=== PATIENT | male | born 1935 | race Caucasian/White ===

== ENCOUNTER 2018-07-24 15:31 | Emergency (ER) | payer MEDICARE, OTHER ==
--- NOTE | 2018-07-24 16:26 | ED.PDOC ---
History of Present Illness - General Chief Complaint: Skin/Abrasion/Tear Stated Complaint: toe bleeding Time Seen by Provider: 07/24/18 16:21 Source: patient Additional Information: he is on blood thinners and while trimming his toe nails he accidentally clipped the skin. it has not quit bleeding. - History of Present Illness Timing/Duration: this morning Severity: mild Location: feet Improving Factors: nothing Worsening Factors: nothing Associated Symptoms: denies symptoms Allergies/Adverse Reactions: Allergies NO KNOWN ALLERGY Allergy (Verified 07/24/18 15:53) Home Medications: Ambulatory Orders Aspirin [Aspirin Childrens] 81 mg PO DAILY 10/25/14 Atorvastatin Calcium [Lipitor] 10 mg PO DAILY 10/25/14 Levothyroxine Sodium [Synthroid] 75 mcg PO DAILY 10/25/14 Review of Systems - Review of Systems Constitutional: States: no symptoms reported EENTM: States: no symptoms reported Respiratory: States: no symptoms reported Cardiology: States: no symptoms reported Gastrointestinal/Abdominal: States: no symptoms reported Genitourinary: States: no symptoms reported Musculoskeletal: States: no symptoms reported Skin: States: other - superficial lac to the left 5th toe Neurological: States: no symptoms reported Endocrine: States: no symptoms reported Hematologic/Lymphatic: States: no symptoms reported Past Medical History (General) - Patient Medical History Hx Seizures: No Hx Stroke: No Hx Dementia: No Hx Asthma: No Hx of COPD: No Hx Cardiac Disorders: No Hx Congestive Heart Failure: No Hx Pacemaker: No Hx Hypertension: No Hx Thyroid Disease: Yes Hx Diabetes: No Hx Gastroesophageal Reflux: No Hx Renal Disease: No Hx Cancer: No Hx of HIV: No Hx Hepatitis C: No Hx MRSA: No Surgical History: other Other Surgeries:: liver transplant, peripheral stenting, valve replacement - Vaccination History Hx Influenza Vaccination: Yes Hx Pneumococcal Vaccination: Yes - Social History Hx Tobacco Use: No Hx Alcohol Use: No Hx Substance Use: No Hx Substance Use Treatment: No Hx Depression: No Family Medical History - Family History Mother Family History: No Known Physical Exam - Physical Exam General Appearance: Alert, Well Developed, Well Groomed, Well Hydrated, Well Nourished Eyes, Ears, Nose, Throat Exam: PERRL/EOMI, normal ENT inspection Neck: non-tender, full range of motion, supple, normal inspection Cardiovascular/Chest: normal peripheral pulses, regular rate, rhythm, no edema, no gallop, no JVD Respiratory: chest non-tender, lungs clear, normal breath sounds, no respiratory distress, no accessory muscle use Gastrointestinal/Abdominal: normal bowel sounds, non tender, soft, no organomegaly Back Exam: normal inspection Extremity: other - fifth left toe has a superfical wound, mild bleeding. Neurologic: no motor/sensory deficits, alert, normal mood/affect, oriented x 3 Lymphatic: no adenopathy Progress - Progress Progress: 07/24/18 16:33 NO FURTHER BLEEDING. WILL DC HOME WITH A PRESSURE DRESSING TO THE TOE. Procedures - Laceration/Wound Repair Toe Wound Length (cm): 0.5 Wound's Depth, Shape: superficial Wound Explored: clean Betadine Prep?: No Layer Closure?: No Sterile Dressing Applied?: Yes Splint Applied?: No Progress: the wound was not closed. it was cleansed and then silver nitrate was applied to stop the bleeding. good results. Departure - Departure Clinical Impression: Laceration of toe Qualifiers: Encounter type: initial encounter Toe: lesser toe Damage to nail status: without damage Foreign body presence: without foreign body Laterality: left Qualified Code(s): S91.115A - Laceration without foreign body of left lesser toe (s) without damage to nail, initial encounter Time of Disposition: 16:34 Disposition: Discharge to Home or Self Care Condition: Good Departure Forms: ED Discharge - Pt. Copy, Patient Portal Self Enrollment Referrals: Jose Raul Hill III, MD [Primary Care Provider] - 1-2 Weeks Home Medications: Ambulatory Orders Aspirin [Aspirin Childrens] 81 mg PO DAILY 10/25/14 Atorvastatin Calcium [Lipitor] 10 mg PO DAILY 10/25/14 Levothyroxine Sodium [Synthroid] 75 mcg PO DAILY 10/25/14
[2018-07-24] MEDS ORDERED: NEOMYCIN-BACITRACIN-POLYMYXIN 0.9 GM UD TOP ONE (16:37)
[2018-07-24 16:43] VITALS: BP 129/59; TEMP 98.5; O2SAT 97
== END 2018-07-24 16:43 | disposition home or self-care (01) ==
LOC: ER 15:31
DX: S91.115A Laceration without foreign body of left lesser toe(s) without damage to nail, initial encounter (principal); E07.9 Disorder of thyroid, unspecified; Z79.01 Long term (current) use of anticoagulants; Z94.4 Liver transplant status; Z95.2 Presence of prosthetic heart valve; Z79.82 Long term (current) use of aspirin; Z79.899 Other long term (current) drug therapy; W45.8XXA Other foreign body or object entering through skin, initial encounter; Y93.89 Activity, other specified

== ENCOUNTER → 2018-12-26 | Outpatient (CLI) | payer MEDICARE, OTHER | LOC: SOLHH 10:07 | PROVIDERS: ATTEND Internal Medicine Gastroenterology | DX: Z51.81 Encounter for therapeutic drug level monitoring (principal); R06.02 Shortness of breath; N18.3 Chronic kidney disease, stage 3 (moderate); S91.109A Unspecified open wound of unspecified toe(s) without damage to nail, initial encounter; Z94.4 Liver transplant status; Z79.899 Other long term (current) drug therapy ==

== ENCOUNTER → 2018-12-30 | Outpatient (CLI) | payer MEDICARE, OTHER | LOC: BFHH 08:43 | PROVIDERS: ATTEND Internal Medicine Gastroenterology | DX: I12.9 Hypertensive chronic kidney disease with stage 1 through stage 4 chronic kidney disease, or unspecified chronic kidney disease (principal); N18.3 Chronic kidney disease, stage 3 (moderate); S91.109A Unspecified open wound of unspecified toe(s) without damage to nail, initial encounter; Z51.81 Encounter for therapeutic drug level monitoring; Z94.4 Liver transplant status ==

== ENCOUNTER → 2019-01-06 | Outpatient (CLI) | payer MEDICARE, OTHER | LOC: BFHH 08:57 | PROVIDERS: ATTEND Internal Medicine Gastroenterology | DX: I96 Gangrene, not elsewhere classified (principal); S91.109D Unspecified open wound of unspecified toe(s) without damage to nail, subsequent encounter; Z94.4 Liver transplant status; Z79.899 Other long term (current) drug therapy ==

== ENCOUNTER 2019-01-27 09:06 | Outpatient (CLI) | payer MEDICARE, OTHER | END 2019-02-07 23:59 | LOC: BFHH 09:06 | PROVIDERS: ATTEND Internal Medicine Gastroenterology | DX: N18.3 Chronic kidney disease, stage 3 (moderate) (principal); S91.109D Unspecified open wound of unspecified toe(s) without damage to nail, subsequent encounter; Z51.81 Encounter for therapeutic drug level monitoring; Z79.899 Other long term (current) drug therapy; Z94.4 Liver transplant status ==

== ENCOUNTER → 2019-02-10 | Outpatient (CLI) | payer MEDICARE, OTHER | LOC: BFHH 09:53 | PROVIDERS: ATTEND Internal Medicine Gastroenterology | DX: R06.02 Shortness of breath (principal); N18.3 Chronic kidney disease, stage 3 (moderate); S91.109D Unspecified open wound of unspecified toe(s) without damage to nail, subsequent encounter; Z94.4 Liver transplant status; Z79.899 Other long term (current) drug therapy; Z51.81 Encounter for therapeutic drug level monitoring ==

== ENCOUNTER → 2019-02-17 | Outpatient (CLI) | payer MEDICARE, OTHER | LOC: BFHH 10:00 | PROVIDERS: ATTEND Internal Medicine Gastroenterology | DX: N18.3 Chronic kidney disease, stage 3 (moderate) (principal); I12.9 Hypertensive chronic kidney disease with stage 1 through stage 4 chronic kidney disease, or unspecified chronic kidney disease; I70.262 Atherosclerosis of native arteries of extremities with gangrene, left leg; Z51.81 Encounter for therapeutic drug level monitoring; Z94.4 Liver transplant status ==

== ENCOUNTER → 2019-02-24 | Outpatient (CLI) | payer MEDICARE, OTHER | LOC: BFHH 09:20 | PROVIDERS: ATTEND Internal Medicine Gastroenterology | DX: I70.262 Atherosclerosis of native arteries of extremities with gangrene, left leg (principal); I12.9 Hypertensive chronic kidney disease with stage 1 through stage 4 chronic kidney disease, or unspecified chronic kidney disease; N18.3 Chronic kidney disease, stage 3 (moderate); Z51.81 Encounter for therapeutic drug level monitoring; Z94.4 Liver transplant status ==

== ENCOUNTER → 2019-03-03 | Outpatient (CLI) | payer MEDICARE, OTHER | LOC: BFHH 10:33 | PROVIDERS: ATTEND Internal Medicine Gastroenterology | DX: Z94.4 Liver transplant status (principal); Z51.81 Encounter for therapeutic drug level monitoring; N18.3 Chronic kidney disease, stage 3 (moderate); I12.9 Hypertensive chronic kidney disease with stage 1 through stage 4 chronic kidney disease, or unspecified chronic kidney disease; S91.109D Unspecified open wound of unspecified toe(s) without damage to nail, subsequent encounter; I70.262 Atherosclerosis of native arteries of extremities with gangrene, left leg ==

== ENCOUNTER → 2019-03-10 | Outpatient (CLI) | payer MEDICARE, OTHER | LOC: BFHH 09:28 | PROVIDERS: ATTEND Internal Medicine Gastroenterology | DX: N18.3 Chronic kidney disease, stage 3 (moderate) (principal); S91.109D Unspecified open wound of unspecified toe(s) without damage to nail, subsequent encounter; I12.9 Hypertensive chronic kidney disease with stage 1 through stage 4 chronic kidney disease, or unspecified chronic kidney disease; I70.262 Atherosclerosis of native arteries of extremities with gangrene, left leg; Z94.4 Liver transplant status; Z51.81 Encounter for therapeutic drug level monitoring ==

== ENCOUNTER → 2019-03-17 | Outpatient (CLI) | payer MEDICARE, OTHER | LOC: BFHH 09:20 | PROVIDERS: ATTEND Internal Medicine Gastroenterology | DX: I12.9 Hypertensive chronic kidney disease with stage 1 through stage 4 chronic kidney disease, or unspecified chronic kidney disease (principal); R06.02 Shortness of breath; N18.3 Chronic kidney disease, stage 3 (moderate); I25.10 Atherosclerotic heart disease of native coronary artery without angina pectoris; Z51.81 Encounter for therapeutic drug level monitoring; Z47.81 Encounter for orthopedic aftercare following surgical amputation; Z94.4 Liver transplant status ==

== ENCOUNTER → 2019-03-24 | Outpatient (CLI) | payer MEDICARE, OTHER | LOC: BFHH 08:57 | PROVIDERS: ATTEND Internal Medicine Gastroenterology | DX: I12.9 Hypertensive chronic kidney disease with stage 1 through stage 4 chronic kidney disease, or unspecified chronic kidney disease (principal); N18.3 Chronic kidney disease, stage 3 (moderate); I70.262 Atherosclerosis of native arteries of extremities with gangrene, left leg; Z51.81 Encounter for therapeutic drug level monitoring; Z79.02 Long term (current) use of antithrombotics/antiplatelets; Z47.81 Encounter for orthopedic aftercare following surgical amputation ==

== ENCOUNTER → 2019-03-31 | Outpatient (CLI) | payer MEDICARE, OTHER | LOC: BFHH 09:49 | PROVIDERS: ATTEND Internal Medicine Gastroenterology | DX: I70.262 Atherosclerosis of native arteries of extremities with gangrene, left leg (principal); I12.9 Hypertensive chronic kidney disease with stage 1 through stage 4 chronic kidney disease, or unspecified chronic kidney disease; K76.9 Liver disease, unspecified ==

== ENCOUNTER → 2019-04-25 | Outpatient (CLI) | payer MEDICARE, OTHER | LOC: LAB.O 08:25 | PROVIDERS: ATTEND Internal Medicine Gastroenterology | DX: N18.9 Chronic kidney disease, unspecified (principal); R94.5 Abnormal results of liver function studies; Z51.81 Encounter for therapeutic drug level monitoring; Z94.4 Liver transplant status ==

== ENCOUNTER → 2019-05-16 | Outpatient (CLI) | payer MEDICARE, OTHER | LOC: LAB.O 08:14 | PROVIDERS: ATTEND Internal Medicine Gastroenterology | DX: Z94.4 Liver transplant status (principal); Z51.81 Encounter for therapeutic drug level monitoring; R94.5 Abnormal results of liver function studies; N18.9 Chronic kidney disease, unspecified ==

== ENCOUNTER → 2019-06-18 | Outpatient (CLI) | payer MEDICARE, OTHER | LOC: LAB.O 09:09 | PROVIDERS: ATTEND Internal Medicine Gastroenterology | DX: R94.5 Abnormal results of liver function studies (principal); R93.2 Abnormal findings on diagnostic imaging of liver and biliary tract; N18.3 Chronic kidney disease, stage 3 (moderate); I25.10 Atherosclerotic heart disease of native coronary artery without angina pectoris; Z94.4 Liver transplant status ==

== ENCOUNTER → 2019-07-01 | Outpatient (CLI) | payer MEDICARE, OTHER | LOC: LAB.O 08:46 | PROVIDERS: ATTEND Internal Medicine Gastroenterology | DX: Z94.4 Liver transplant status (principal) ==

== ENCOUNTER → 2019-09-18 | Outpatient (CLI) | payer MEDICARE, OTHER | LOC: LAB.O 07:44 | PROVIDERS: ATTEND Internal Medicine Gastroenterology | DX: E03.9 Hypothyroidism, unspecified (principal); E78.5 Hyperlipidemia, unspecified; M81.0 Age-related osteoporosis without current pathological fracture; Z94.4 Liver transplant status ==

== ENCOUNTER → 2019-10-20 | Outpatient (CLI) | payer MEDICARE, OTHER ==
--- NOTE | 2019-10-21 07:53 | MRI ---
EXAM DESCRIPTION: Lower Extremity,Left CLINICAL HISTORY: 84 years, Male, left OPEN WOUND OF TOE. Worse ulceration fourth digit. COMPARISON: None TECHNIQUE: MRI of the left foot was performed with multiplanar multi sequence imaging without intravenous contrast. FINDINGS: Motion artifact degrades image quality.. Increased T2/STIR signal and subtle decreased T1 signal at the fourth and fifth distal phalanges suggesting early changes of osteomyelitis. Mild bone marrow edema along the second and third toe distal phalanges without significant decrease in T1 signal likely represent mild reactive bone marrow edema. Scattered mild osteoarthritic changes with subcortical cystic changes. Heterogenous bone marrow signal within the distal tibia, talar dome and neck, nonspecific. Ligaments and tendons: The visualized flexor and extensor tendons are intact. The visualized Lisfranc ligament complex is intact. No tenosynovitis. Soft tissues: Generalized forefoot soft tissue edema. Distal toes soft tissue ulceration more pronounced involving the fourth digit. No drainable fluid collection or abscess. IMPRESSION: 1. Edema and subtle decreased T1 signal at the fourth and fifth toes distal phalanges suggesting early changes of osteomyelitis. 2. Second and third toe distal phalanges reactive bone marrow edema. 3. Mild heterogenous bone marrow signal, nonspecific. Overlying forefoot soft tissue swelling. Electronically signed by: Gonzalez Flannery DO 10/21/2019 7:52 AM EQUIPMENT INST[employer]ATION PROFESSIONAL
== END ==
LOC: MRI 07:00
PROVIDERS: ATTEND Internal Medicine
DX: S91.105A Unspecified open wound of left lesser toe(s) without damage to nail, initial encounter (principal); R60.0 Localized edema

== ENCOUNTER → 2019-12-26 | Outpatient (CLI) | payer MEDICARE, OTHER | LOC: LAB.NP 11:23 | PROVIDERS: ATTEND Internal Medicine Gastroenterology | DX: Z94.4 Liver transplant status (principal); I87.2 Venous insufficiency (chronic) (peripheral); I12.9 Hypertensive chronic kidney disease with stage 1 through stage 4 chronic kidney disease, or unspecified chronic kidney disease; N18.9 Chronic kidney disease, unspecified; I25.10 Atherosclerotic heart disease of native coronary artery without angina pectoris; Z85.05 Personal history of malignant neoplasm of liver ==

== ENCOUNTER → 2019-12-29 | Outpatient (CLI) | payer MEDICARE, OTHER | LOC: NC 10:13 | PROVIDERS: ATTEND Internal Medicine Gastroenterology | DX: D89.9 Disorder involving the immune mechanism, unspecified (principal); E55.9 Vitamin D deficiency, unspecified; E50.9 Vitamin A deficiency, unspecified; E03.9 Hypothyroidism, unspecified; R35.0 Frequency of micturition; N18.3 Chronic kidney disease, stage 3 (moderate); Z94.4 Liver transplant status ==

== ENCOUNTER → 2020-01-09 | Outpatient (CLI) | payer MEDICARE, OTHER | LOC: NC 12:24 | PROVIDERS: ATTEND Family Medicine | DX: I12.9 Hypertensive chronic kidney disease with stage 1 through stage 4 chronic kidney disease, or unspecified chronic kidney disease (principal); N18.9 Chronic kidney disease, unspecified; Z94.4 Liver transplant status; Z85.05 Personal history of malignant neoplasm of liver ==

== ENCOUNTER → 2020-01-16 | Outpatient (CLI) | payer MEDICARE, OTHER | LOC: LAB.O 10:01 | PROVIDERS: ATTEND Internal Medicine Gastroenterology | DX: Z94.4 Liver transplant status (principal); I73.9 Peripheral vascular disease, unspecified; R60.9 Edema, unspecified ==

== ENCOUNTER → 2020-01-23 | Outpatient (CLI) | payer MEDICARE, OTHER | LOC: NC 11:19 | PROVIDERS: ATTEND Internal Medicine Gastroenterology | DX: R60.9 Edema, unspecified (principal); I73.9 Peripheral vascular disease, unspecified; Z94.4 Liver transplant status ==

== ENCOUNTER → 2020-01-30 | Outpatient (CLI) | payer MEDICARE, OTHER | LOC: NC 15:22 | PROVIDERS: ATTEND Family Medicine | DX: R60.9 Edema, unspecified (principal); I73.9 Peripheral vascular disease, unspecified; Z94.4 Liver transplant status ==

== ENCOUNTER → 2020-02-05 | Outpatient (CLI) | payer MEDICARE, OTHER ==
--- NOTE | 2020-02-05 14:51 | US ---
EXAM DESCRIPTION: Abdomen,Complete: Ultrasound. CLINICAL HISTORY: 84 years MalePOST LIVER TRANSPLANT EVALUATION, IMMUNOSUPPRESSION COMPARISON: MRI lower extremity October 20. TECHNIQUE: Transabdominal scanning: grayscale and Doppler modes. FINDINGS: Liver: Heterogeneous echoes but not increased. Long axis right lobe 14.6 cm. Normal hepatopedal flow in the portal vein measuring 10 mm at the bari hepatis. Normal caliber of the right and left portal veins. Multiphasic flow in the hepatic arteries. Centripetal flow in the hepatic veins.. Pancreas: Not well seen.. Abdominal aorta: Proximal 2.4 cm. Mid aorta 4 cm diameter. Distal aorta 1.7 cm diameter. IVC: visualized; normal caliber. Spleen normal echogenicity; long axis measurement is 12.3 cm. Right kidney: 7.9 cm Long axis. Increased cortical echogenicity greater than the liver; 9 mm thickness at the mid cortex. Lobulated capsule. No echogenic stones or hydronephrosis. Left kidney: 8.8 cm long axis. 8 mm mid renal cortical thickness with increased echogenicity greater than the liver. No echogenic stones or hydronephrosis. No perirenal fluid.. Gallbladder: Surgically removed. No fluid in the gallbladder fossa. Nontender with transducer pressure. Common bile duct: 11 mm caliber slightly dilated. IMPRESSION: 1. Heterogeneous echoes in the liver with no steatosis or focal lesions. Normal size and normal caliber ducts. Physiologic flow in the hepatic arteries, portal veins, and hepatic veins. No ascites. 2. Bilateral advanced renal disease. 3. 4.0 cm abdominal aortic aneurysm. Recommend follow-up every 12 months and vascular consultation. Reference: J Am Lazara Radiol 2013;10:789-794. 4. Prior cholecystectomy with no fluid. Common bile duct diameter is dilated at 11 mm. Electronically signed by: Ramesh Krishna MD 02/05/2020 2:49 PM CDT
== END ==
LOC: US 11:24
PROVIDERS: ATTEND Internal Medicine Gastroenterology
DX: Z94.4 Liver transplant status (principal); D89.9 Disorder involving the immune mechanism, unspecified; I71.4 Abdominal aortic aneurysm, without rupture; N28.9 Disorder of kidney and ureter, unspecified; K76.9 Liver disease, unspecified; I73.9 Peripheral vascular disease, unspecified; R60.9 Edema, unspecified; Z90.49 Acquired absence of other specified parts of digestive tract

== ENCOUNTER → 2020-02-13 | Outpatient (CLI) | payer MEDICARE, OTHER | LOC: NC 10:17 | PROVIDERS: ATTEND Family Medicine | DX: L97.529 Non-pressure chronic ulcer of other part of left foot with unspecified severity (principal); R60.9 Edema, unspecified; I73.9 Peripheral vascular disease, unspecified; Z94.4 Liver transplant status ==

== ENCOUNTER → 2020-02-18 | Outpatient (CLI) | payer MEDICARE, OTHER ==
--- NOTE | 2020-02-18 14:38 | MRI ---
EXAM DESCRIPTION: Abdomen CLINICAL HISTORY: 84 years Male, ABNORMAL US OF ABDOMEN LIVER REPLACED BY TRANSPLANT COMPARISON: Ultrasound abdomen complete February 05, 2020 FINDINGS: MRI of the upper abdomen was performed with attention to the transplanted liver. Coronal T2 images show normal signal intensity within the liver. Few small cysts are incidentally noted measuring 8 mm each (coronal image 19, series 401). Small indeterminate T2 hyperintense lesion in the lateral segment left lobe measures 5 mm. Question additional small right lobe lesions 8 mm and 5 mm. Normal flow void in the inferior vena cava, hepatic veins and portal vein. Prominent cystic duct with small cystic duct mucocele measuring 1.4 cm. Normal caliber of the common hepatic and common bile ducts. No bile duct stones. Normal appearance of the pancreas and pancreatic duct. Tiny cyst in the pancreatic body 6 mm. Infrarenal abdominal aortic aneurysm measures 4.2 cm in diameter. This should be followed with imaging (CT, sonography) every 12 months. Vascular surgical consultation is recommended if not already obtained. Dual phase T1 gradient echo imaging was performed. Mild loss of signal intensity within the liver consistent with hepatic steatosis. In phase signal intensity equals 866 in the right lobe compared to 294 on the opposed phase images. Evaluating the diffusion-weighted images, no worrisome findings. MRCP images show prominent common hepatic and common bile ducts with no intraluminal stones. Gallbladder surgically absent. Cyst in the region of the cystic duct consistent with small cystic duct mucocele. Mild prominence of intrahepatic ducts. Common bile duct measures 9 mm. Prominent left intrahepatic duct measures 4 mm. Coronal reformatted images suggest anastomotic stricture at the junction of the [place] common hepatic duct and transplant common hepatic duct (series 1201, images 29 through 42). The status of the hepatic artery is indeterminate. Patient had transplant Doppler sonogram of the liver and 29/04/2020 which showed positive flow in the main portal vein. Some images were labeled hepatic artery but the spectral waveform appeared more consistent with portal venous flow then arterial flow. 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 Small cysts in the transplanted liver. 4.2 cm infrarenal abdominal aortic aneurysm. Electronically signed by: Jewel Ramirez MD 02/18/2020 2:36 PM CDT
== END ==
LOC: MRI 11:11
PROVIDERS: ATTEND Internal Medicine Gastroenterology
DX: R93.5 Abnormal findings on diagnostic imaging of other abdominal regions, including retroperitoneum (principal); K76.89 Other specified diseases of liver; I71.4 Abdominal aortic aneurysm, without rupture; K83.9 Disease of biliary tract, unspecified; Z94.4 Liver transplant status

== ENCOUNTER → 2020-02-19 | Outpatient (CLI) | payer MEDICARE, OTHER | LOC: NC 12:34 | PROVIDERS: ATTEND Family Medicine | DX: R60.9 Edema, unspecified (principal); I73.9 Peripheral vascular disease, unspecified; Z94.4 Liver transplant status ==

== ENCOUNTER → 2020-02-27 | Outpatient (CLI) | payer MEDICARE, OTHER | LOC: NC 11:34 | PROVIDERS: ATTEND Family Medicine | DX: S91.302D Unspecified open wound, left foot, subsequent encounter (principal); R60.9 Edema, unspecified; I73.9 Peripheral vascular disease, unspecified; Z94.4 Liver transplant status ==

== ENCOUNTER → 2020-03-05 | Outpatient (CLI) | payer MEDICARE, OTHER | LOC: NC 10:17 | PROVIDERS: ATTEND Family Medicine | DX: R60.9 Edema, unspecified (principal); I73.9 Peripheral vascular disease, unspecified; Z94.4 Liver transplant status ==

== ENCOUNTER → 2020-03-12 | Outpatient (CLI) | payer MEDICARE, OTHER | LOC: NC 11:05 | PROVIDERS: ATTEND Family Medicine | DX: R60.9 Edema, unspecified (principal); I73.9 Peripheral vascular disease, unspecified; Z94.4 Liver transplant status ==

== ENCOUNTER → 2020-03-19 | Outpatient (CLI) | payer MEDICARE, OTHER | LOC: NC 11:18 | PROVIDERS: ATTEND Family Medicine | DX: S91.302D Unspecified open wound, left foot, subsequent encounter (principal); I87.2 Venous insufficiency (chronic) (peripheral); I12.9 Hypertensive chronic kidney disease with stage 1 through stage 4 chronic kidney disease, or unspecified chronic kidney disease; Z94.4 Liver transplant status ==

== ENCOUNTER → 2020-03-26 | Outpatient (CLI) | payer MEDICARE, OTHER | LOC: NC 10:50 | PROVIDERS: ATTEND Family Medicine | DX: R60.9 Edema, unspecified (principal); I73.9 Peripheral vascular disease, unspecified; Z94.4 Liver transplant status ==

== ENCOUNTER → 2020-04-02 | Outpatient (CLI) | payer MEDICARE, OTHER | LOC: NC 10:54 | PROVIDERS: ATTEND Family Medicine | DX: Z94.4 Liver transplant status (principal) ==

== ENCOUNTER → 2020-04-09 | Outpatient (CLI) | payer MEDICARE, OTHER | LOC: NC 09:13 | PROVIDERS: ATTEND Emergency Medicine | DX: R60.9 Edema, unspecified (principal); I73.9 Peripheral vascular disease, unspecified; Z94.4 Liver transplant status ==

== ENCOUNTER → 2020-04-23 | Outpatient (CLI) | payer MEDICARE, OTHER | LOC: NC 12:49 | PROVIDERS: ATTEND Family Medicine | DX: R60.9 Edema, unspecified (principal); I73.9 Peripheral vascular disease, unspecified; Z94.4 Liver transplant status ==

== ENCOUNTER → 2020-05-14 | Outpatient (CLI) | payer MEDICARE, OTHER | LOC: NC 10:46 | PROVIDERS: ATTEND Family Medicine | DX: R60.9 Edema, unspecified (principal); I73.9 Peripheral vascular disease, unspecified; Z94.4 Liver transplant status ==

== ENCOUNTER → 2020-05-21 | Outpatient (CLI) | payer MEDICARE, OTHER | LOC: NC 12:04 | PROVIDERS: ATTEND Family Medicine | DX: Z94.4 Liver transplant status (principal) ==

== ENCOUNTER → 2020-06-18 | Outpatient (CLI) | payer MEDICARE, OTHER | LOC: GMAL 10:25 | PROVIDERS: ATTEND Family Medicine | DX: Z94.4 Liver transplant status (principal) ==

== ENCOUNTER → 2020-07-16 | Outpatient (CLI) | payer MEDICARE, OTHER | LOC: NC 14:59 | PROVIDERS: ATTEND Family Medicine | DX: I70.245 Atherosclerosis of native arteries of left leg with ulceration of other part of foot (principal) ==

== ENCOUNTER → 2020-08-10 | Outpatient (CLI) | payer MEDICARE, OTHER ==
--- NOTE | 2020-08-10 13:37 | MRI ---
EXAM DESCRIPTION: MRI left ankle and foot CLINICAL HISTORY: Pressure ulceration on the lateral side of the foot and on the top of the foot. Nonhealing wound. COMPARISON: 10/20/2019 TECHNIQUE: Multiplanar, multisequence MR images of the left ankle/foot FINDINGS: Motion degraded study Diffuse extensive subcutaneous soft tissue edema and swelling around the ankle and mostly over the dorsum of the foot. No soft tissue abscess Ulceration/nonhealing wound of the base of the fifth metatarsal best appreciated axial image 38-39. Minimal subcortical marrow edema, linear edema paralleling the cortex, in the lateral base of the fifth metatarsal. No osseous destruction. Marrow signal otherwise normal in the fifth metatarsal No other marrow edema suggests sequela of osteomyelitis. No septic arthritis or septic synovitis Small area of curvilinear signal abnormality in the lateral talar dome, sequela of remote infarct. No osteochondral lesion of the ankle, subtalar, calcaneocuboid. Grade 4 chondrosis with minimal subchondral bony irregularity in the plantar medial talar head with minimal subchondral marrow edema over small region IMPRESSION: Diffuse subcutaneous soft tissue edema and swelling consistent with cellulitis. No soft tissue abscess Ulceration in contact with the cortex of the base of the fifth metatarsal. Minimal subcortical marrow edema could be reactive or early manifestation of osteomyelitis Electronically signed by: Rohit Briggs MD 08/10/2020 1:35 PM [facility]
== END ==
LOC: MRI 10:00
PROVIDERS: ATTEND Family Medicine
DX: L89.899 Pressure ulcer of other site, unspecified stage (principal); R60.0 Localized edema; M79.9 Soft tissue disorder, unspecified

== ENCOUNTER → 2020-08-11 | Outpatient (CLI) | payer MEDICARE, OTHER ==
--- NOTE | 2020-08-12 09:26 | US ---
EXAM DESCRIPTION: Venous,Lower Extremity LT (accession [id number]), Venous,Lower Extremity RT (accession [id number]): Ultrasound. CLINICAL HISTORY: pressure ulcer COMPARISON: Bilateral lower extremity arterial Doppler ultrasound with JOSE RAFAEL measurements. TECHNIQUE: Two -dimensional and doppler sonographic evaluation of the deep venous system of the bilateral lower extremities. FINDINGS: Doppler evaluation shows normal color flow and normal phasicity and augmentation of the bilateral common femoral veins, junctions with the bilateral proximal saphenous veins, deep femoral veins, femoral veins, popliteal veins, greater saphenous vein junction with the common femoral veins, peroneal and posterior tibial veins. These veins showed normal occlusion with transducer pressure. Two-dimensional survey showed no echogenic clot within these veins. IMPRESSION: Duplex ultrasound evaluation of the bilateral lower extremity deep venous systems showing no evidence of thrombosis. Electronically signed by: Ramesh Krishna MD 08/12/2020 9:[address] [facility]
--- NOTE | 2020-08-12 09:26 | US ---
EXAM DESCRIPTION: Venous,Lower Extremity LT (accession [id number]), Venous,Lower Extremity RT (accession [id number]): Ultrasound. CLINICAL HISTORY: pressure ulcer COMPARISON: Bilateral lower extremity arterial Doppler ultrasound with JOSE RAFAEL measurements. TECHNIQUE: Two -dimensional and doppler sonographic evaluation of the deep venous system of the bilateral lower extremities. FINDINGS: Doppler evaluation shows normal color flow and normal phasicity and augmentation of the bilateral common femoral veins, junctions with the bilateral proximal saphenous veins, deep femoral veins, femoral veins, popliteal veins, greater saphenous vein junction with the common femoral veins, peroneal and posterior tibial veins. These veins showed normal occlusion with transducer pressure. Two-dimensional survey showed no echogenic clot within these veins. IMPRESSION: Duplex ultrasound evaluation of the bilateral lower extremity deep venous systems showing no evidence of thrombosis. Electronically signed by: Ramesh Krishna MD 08/12/2020 9:24 AM [facility]
--- NOTE | 2020-08-12 09:46 | US ---
EXAM DESCRIPTION: Extremity,Lower Brayden Arteries (accession [id number]), Ankle Brachial Index (accession [id number]): Ultrasound. CLINICAL HISTORY: 85 years Male pressure ulcer COMPARISON: duplex ultrasound of the deep venous systems bilateral lower extremities. TECHNIQUE: Doppler evaluation of the bilateral lower extremity arterial flow waveforms and velocities. Measurement of systolic blood pressures in the bilateral brachial arteries and the bilateral distal lower extremities.. FINDINGS: Arterial waveforms in the right lower extremity: Showing multiphasic waveforms from the right common femoral artery through the right popliteal artery. Monophasic waveforms from the right peroneal artery to the right dorsalis pedis artery. Arterial waveforms in the left lower extremity: Multiphasic waveforms in the left common femoral artery and proximal left superficial femoral artery. Monophasic waveforms in the remainder of the left lower extremity arterial system except for essentially no flow in the left posterior tibial artery and trace flow in the left dorsalis pedis artery.. Comments: Elevated velocity in the left mid superficial femoral artery indicative of early or developing stenosis. JOSE RAFAEL (BP units mm Hg.) RIGHT Brachial SBP 150. PT SBP 165. JOSE RAFAEL 1.1. DP SBP unable to measure.. LEFT Brachial SBP 150 (147). PT SBP 134. JOSE RAFAEL 0.9. DP SBP 124. JOSE RAFAEL 0.83. IMPRESSION: 1. Doppler evaluation and JOSE RAFAEL measurements of the left lower extremity demonstrating significant atherosclerotic occlusive disease worsening from the mid thigh into the left calf. No flow in the left posterior tibial artery. 2. Early atherosclerotic occlusive disease in the right calf. Electronically signed by: Ramesh Krishna MD 08/12/2020 9:45 AM CAMP DIRECTOR
--- NOTE | 2020-08-12 09:47 | US ---
EXAM DESCRIPTION: Extremity,Lower Brayden Arteries (accession [id number]), Ankle Brachial Index (accession [id number]): Ultrasound. CLINICAL HISTORY: 85 years Male pressure ulcer COMPARISON: duplex ultrasound of the deep venous systems bilateral lower extremities. TECHNIQUE: Doppler evaluation of the bilateral lower extremity arterial flow waveforms and velocities. Measurement of systolic blood pressures in the bilateral brachial arteries and the bilateral distal lower extremities.. FINDINGS: Arterial waveforms in the right lower extremity: Showing multiphasic waveforms from the right common femoral artery through the right popliteal artery. Monophasic waveforms from the right peroneal artery to the right dorsalis pedis artery. Arterial waveforms in the left lower extremity: Multiphasic waveforms in the left common femoral artery and proximal left superficial femoral artery. Monophasic waveforms in the remainder of the left lower extremity arterial system except for essentially no flow in the left posterior tibial artery and trace flow in the left dorsalis pedis artery.. Comments: Elevated velocity in the left mid superficial femoral artery indicative of early or developing stenosis. JOSE RAFAEL (BP units mm Hg.) RIGHT Brachial SBP 150. PT SBP 165. JOSE RAFAEL 1.1. DP SBP unable to measure.. LEFT Brachial SBP 150 (147). PT SBP 134. JOSE RAFAEL 0.9. DP SBP 124. JOSE RAFAEL 0.83. IMPRESSION: 1. Doppler evaluation and JOSE RAFAEL measurements of the left lower extremity demonstrating significant atherosclerotic occlusive disease worsening from the mid thigh into the left calf. No flow in the left posterior tibial artery. 2. Early atherosclerotic occlusive disease in the right calf. Electronically signed by: Ramesh Krishna MD 08/12/2020 9:45 AM FIRE PREVENTION INSPECTOR
== END ==
LOC: US 10:00
PROVIDERS: ATTEND Family Medicine
DX: L89.899 Pressure ulcer of other site, unspecified stage (principal); I70.203 Unspecified atherosclerosis of native arteries of extremities, bilateral legs; Z95.828 Presence of other vascular implants and grafts

== ENCOUNTER → 2020-08-13 | Outpatient (CLI) | payer MEDICARE, OTHER | LOC: NC 09:12 | PROVIDERS: ATTEND Family Medicine | DX: Z94.4 Liver transplant status (principal); R60.9 Edema, unspecified; I73.9 Peripheral vascular disease, unspecified ==

== ENCOUNTER → 2020-09-10 | Outpatient (CLI) | payer MEDICARE, OTHER | LOC: NC 10:57 | PROVIDERS: ATTEND Family Medicine | DX: R60.9 Edema, unspecified (principal); I73.9 Peripheral vascular disease, unspecified; Z94.4 Liver transplant status ==

== ENCOUNTER → 2020-10-08 | Outpatient (CLI) | payer MEDICARE, OTHER | LOC: NC 10:34 | PROVIDERS: ATTEND Family Medicine | DX: I12.9 Hypertensive chronic kidney disease with stage 1 through stage 4 chronic kidney disease, or unspecified chronic kidney disease (principal); N18.9 Chronic kidney disease, unspecified; Z94.4 Liver transplant status ==

== ENCOUNTER → 2020-11-05 | Outpatient (CLI) | payer MEDICARE, OTHER | LOC: NC 14:16 | PROVIDERS: ATTEND Family Medicine | DX: R60.9 Edema, unspecified (principal); I73.9 Peripheral vascular disease, unspecified; Z94.4 Liver transplant status; Z91.81 History of falling ==